=== PATIENT | female | born 1980 | race Caucasian/White ===

== ENCOUNTER 2020-07-12 21:12 | Inpatient (IN) ==
[2020-07-12] MEDS ORDERED: Aspirin 81 MG TAB.CHEW PO ONE (22:25)
[2020-07-12] MEDS ORDERED: Aspirin 81 MG TAB.CHEW ONE (22:26)
[2020-07-12 22:54] LABS: INR 1.1; Prothrombin Time 12.1 Seconds (9.4-12.1)
[2020-07-12 23:09] LABS: Alanine Aminotransferase 13 Units/L (7-52); Albumin 3.6 g/dL (3.5-5.7); Albumin/Globulin Ratio 1.5 (1.1-2.2); Alkaline Phosphatase 48 Units/L (34-104); Aspartate Amino Transferase 15 Units/L (13-39); BUN/Creatinine Ratio 16 (6-26); Bilirubin,Total 0.4 mg/dL (0.3-1.0); Blood Urea Nitrogen 18 mg/dL (6-20); Calcium 8.8 mg/dL (8.6-10.3); Carbon Dioxide 25 mEq/L (23-29); Chloride 108 mEq/L (98-107); Globulin 2.4 g/dL (2.4-3.5); Glucose 90 mg/dL (70-105); Magnesium 1.7 mg/dL (1.6-2.6); Osmolality,Calculated 285 (280-300); Potassium 4.3 mEq/L (3.5-5.1); Sodium 137 mEq/L (136-145); eGFR For African Americans > 60 (> 60); eGFR For Non-African Americans 54 (> 60)
[2020-07-12 23:10] LABS: Troponin I < 0.03 ng/mL (< 0.04)
[2020-07-12] MEDS ORDERED: Isovue-370 500 ML BOTTLE IVP ONE (23:18)
[2020-07-13 01:31] LABS: Basophils % 1.3 %; Eosinophils # 0.1 K/mcL (0.0-0.6); Eosinophils % 2.1 %; Hematocrit 29.8 % (35.3-44.9); Hemoglobin 9.8 g/dL (11.5-15.4); Immature Granulocytes % 4.2 % (0-4); Lymphocytes # 1.2 K/mcL (0.6-4.6); Lymphocytes % 50.4 %; Mean Corpuscular HGB Conc 32.9 g/dL (31.6-35.5); Mean Corpuscular Hemoglobin 35.5 pg (28.0-33.3); Mean Platelet Volume 9.3 fL (9.4-12.4); Monocytes # 0.1 K/mcL (0.0-1.3); Monocytes % 5.9 %; Neutrophils # 0.9 K/mcL (1.6-8.9); Platelet Count 122 K/mcL (140-400); Red Blood Count 2.76 M/mcL (3.82-4.97); Red Cell Distribution Width 14.6 % (11.5-14.5); Segmented Neutrophils % 36.1 %; White Blood Count 2.4 K/mcL (4.3-11.1)
[2020-07-13 01:52] LABS: Adenovirus Not Detected (Not Detect); Coronavirus 229E Not Detected (Not Detect); Coronavirus HKU1 Not Detected (Not Detect); Coronavirus NL63 Not Detected (Not Detect); Coronavirus OC43 Not Detected (Not Detect)
[2020-07-13 01:53] LABS: Bordetella Pertussis Not Detected (Not Detect); Chlamydophila pneumoniae Not Detected (Not Detect); Human Metapneumovirus Not Detected (Not Detect); Human Rhinovirus/Enterovirus Not Detected (Not Detect); Influenza A Subtype 2009 H1 Not Detected (Not Detect); Influenza B Not Detected (Not Detect); Mycoplasma pneumoniae Not Detected (Not Detect); Parainfluenza Virus 1 Not Detected (Not Detect); Parainfluenza Virus 2 Not Detected (Not Detect); Parainfluenza Virus 3 Not Detected (Not Detect); Parainfluenza Virus 4 Not Detected (Not Detect); Respiratory Syncytial Virus Not Detected (Not Detect)
[2020-07-13] MEDS ORDERED: Ondansetron 4 MG/2 ML VIAL IVP PRN (07:45)
[2020-07-13] MEDS ORDERED: Naloxone 0.4 MG/ML INJ IVP PRN (07:45)
[2020-07-13] MEDS ORDERED: TACROLIMUS 3 MG PO SCH (09:00)
[2020-07-13] MEDS ORDERED: VALGANCICLOVIR HCL 450 MG PO SCH (09:00)
[2020-07-13] MEDS: VALGANCICLOVIR HCL 450 MG PO SCH ×2 (10:28→21:07)
[2020-07-13] MEDS: (Tacrolimus [Prograf] 0.5 MG) PO SCH ×2 (10:29→21:07)
[2020-07-13] MEDS: Tenofovir Disoproxil Fumarate 300 MG TABLET PO SCH (10:30)
[2020-07-13] MEDS: Mycophenolate Sodium (DR) 180 MG TABLET.DR PO SCH ×2 (10:30→21:05)
[2020-07-13] MEDS: *HR* Heparin 5,000 UNIT/ML VIAL SQ SCH (18:09)
[2020-07-13] MEDS: *HR* HYDROcodone/Acet 5/325 mg TABLET PO PRN (21:08)
[2020-07-14] MEDS: *HR* Heparin 5,000 UNIT/ML VIAL SQ SCH ×2 (05:44→17:19)
[2020-07-14 05:46] LABS: INR 1.1; Prothrombin Time 12.6 Seconds (9.4-12.1)
[2020-07-14 05:55] LABS: Hematocrit 31.4 % (35.3-44.9); Hemoglobin 10.4 g/dL (11.5-15.4); Mean Corpuscular HGB Conc 33.1 g/dL (31.6-35.5); Mean Corpuscular Hemoglobin 35.3 pg (28.0-33.3); Mean Corpuscular Volume 106.4 fL (83.0-100.0); Mean Platelet Volume 9.5 fL (9.4-12.4); Platelet Count 132 K/mcL (140-400); Red Blood Count 2.95 M/mcL (3.82-4.97); Red Cell Distribution Width 14.9 % (11.5-14.5); White Blood Count 2.2 K/mcL (4.3-11.1)
[2020-07-14 06:01] LABS: BUN/Creatinine Ratio 17 (6-26); Blood Urea Nitrogen 18 mg/dL (6-20); Calcium 9.1 mg/dL (8.6-10.3); Carbon Dioxide 26 mEq/L (23-29); Chloride 108 mEq/L (98-107); Glucose 101 mg/dL (70-105); Magnesium 1.7 mg/dL (1.6-2.6); Osmolality,Calculated 286 (280-300); Potassium 4.5 mEq/L (3.5-5.1); Sodium 137 mEq/L (136-145); eGFR For African Americans > 60 (> 60); eGFR For Non-African Americans 59 (> 60)
[2020-07-14 06:17] LABS: Basophils % 0.9 %; Eosinophils # 0.1 K/mcL (0.0-0.6); Eosinophils % 4.6 %; Hematocrit 31.4 % (35.3-44.9); Hemoglobin 10.5 g/dL (11.5-15.4); Immature Granulocytes % 0.9 % (0-4); Lymphocytes # 1.3 K/mcL (0.6-4.6); Lymphocytes % 60.1 %; Mean Corpuscular HGB Conc 33.4 g/dL (31.6-35.5); Mean Corpuscular Hemoglobin 35.6 pg (28.0-33.3); Mean Corpuscular Volume 106.4 fL (83.0-100.0); Mean Platelet Volume 9.2 fL (9.4-12.4); Monocytes # 0.1 K/mcL (0.0-1.3); Monocytes % 4.6 %; Neutrophils # 0.6 K/mcL (1.6-8.9); Platelet Count 137 K/mcL (140-400); Red Blood Count 2.95 M/mcL (3.82-4.97); Red Cell Distribution Width 14.7 % (11.5-14.5); Segmented Neutrophils % 28.9 %; White Blood Count 2.2 K/mcL (4.3-11.1)
[2020-07-14 06:47] LABS: Platelet Estimate Normal (Normal); Reactive Lymphocytes Present (Not Present)
[2020-07-14] MEDS: Mycophenolate Sodium (DR) 180 MG TABLET.DR PO SCH ×2 (07:18→19:42)
[2020-07-14] MEDS: *HR* HYDROcodone/Acet 5/325 mg TABLET PO PRN ×3 (07:19→19:42)
[2020-07-14] MEDS: (Tacrolimus [Prograf] 0.5 MG) PO SCH ×2 (07:19→19:42)
[2020-07-14] MEDS: VALGANCICLOVIR HCL 450 MG PO SCH ×2 (07:19→19:42)
[2020-07-14] MEDS ORDERED: Ipratropium/Albuterol Neb 3 ML IH PRN (07:23)
[2020-07-14] MEDS: Tenofovir Disoproxil Fumarate 300 MG TABLET PO SCH (07:40)
[2020-07-14] MEDS: Aspirin Enteric Coated 81 MG Tablet PO SCH (10:39)
[2020-07-14] MEDS: Magnesium Oxide 400 MG TABLET PO SCH ×2 (10:39→19:42)
[2020-07-15 03:08] LABS: Eosinophils # 0.1 K/mcL (0.0-0.6); Eosinophils % 3.8 %; Hematocrit 30.9 % (35.3-44.9); Hemoglobin 10.3 g/dL (11.5-15.4); Immature Granulocytes % 4.8 % (0-4); Lymphocytes # 1.4 K/mcL (0.6-4.6); Mean Corpuscular HGB Conc 33.3 g/dL (31.6-35.5); Mean Platelet Volume 9.5 fL (9.4-12.4); Monocytes # 0.1 K/mcL (0.0-1.3); Monocytes % 4.8 %; Neutrophils # 0.4 K/mcL (1.6-8.9); Platelet Count 129 K/mcL (140-400); Red Blood Count 2.86 M/mcL (3.82-4.97); Red Cell Distribution Width 14.3 % (11.5-14.5); Segmented Neutrophils % 18.6 %; White Blood Count 2.1 K/mcL (4.3-11.1)
[2020-07-15 03:28] LABS: BUN/Creatinine Ratio 22 (6-26); Blood Urea Nitrogen 25 mg/dL (6-20); Calcium 8.8 mg/dL (8.6-10.3); Carbon Dioxide 25 mEq/L (23-29); Chloride 108 mEq/L (98-107); Glucose 91 mg/dL (70-105); Magnesium 1.8 mg/dL (1.6-2.6); Osmolality,Calculated 286 (280-300); Phosphorous 3.9 mg/dL (2.7-4.5); Potassium 4.2 mEq/L (3.5-5.1); Sodium 136 mEq/L (136-145); eGFR For African Americans > 60 (> 60); eGFR For Non-African Americans 52 (> 60)
[2020-07-15 03:51] LABS: Folate 10.2 ng/mL (3.0-16.0)
[2020-07-15] MEDS: *HR* Heparin 5,000 UNIT/ML VIAL SQ SCH (05:56)
[2020-07-15] MEDS: Tenofovir Disoproxil Fumarate 300 MG TABLET PO SCH (08:18)
[2020-07-15] MEDS: (Tacrolimus [Prograf] 0.5 MG) PO SCH (08:19)
[2020-07-15] MEDS: Mycophenolate Sodium (DR) 180 MG TABLET.DR PO SCH (08:19)
[2020-07-15] MEDS: Aspirin Enteric Coated 81 MG Tablet PO SCH (08:19)
[2020-07-15] MEDS: Magnesium Oxide 400 MG TABLET PO SCH (08:19)
[2020-07-15] MEDS: *HR* HYDROcodone/Acet 5/325 mg TABLET PO PRN (08:19)
[2020-07-15] MEDS: VALGANCICLOVIR HCL 450 MG PO SCH (08:19)
[2020-07-15 11:01] VITALS: BP 101/62
== END 2020-07-15 15:50 | disposition home or self-care (01) | DRG 143 ==
LOC: 2ANU 21:12 → EMEROOARM 21:12 → SUATTDRO 07-13 05:31 → 2ANU 07-13 06:48 → SUATTDRO 07-13 17:59
PROVIDERS: ADMIT Internal Medicine; ATTEND Internal Medicine